=== PATIENT | male | born 1975 | race Hispanic/Latino ===

== ENCOUNTER 2021-08-07 17:17 | Inpatient (IN) | payer OTHER ==
[~2021-08-07] VITALS: Ht 175.3 cm; Wt 123.6 kg
[2021-08-07 17:40] LABS: BASOPHILS % (AUTO) 1.1 % (0.0-5.0); EOSINOPHILS % (AUTO) 1.5 % (0.0-8.0); LYMPHOCYTES % (AUTO) 23.4 % (21.0-51.0); MEAN CORPUSCULAR HEMOGLOBIN 29.1 pg (27.0-33.0); MEAN CORPUSCULAR VOLUME 80.9 fL (79-99); MONOCYTES % (AUTO) 7.7 % (3.0-13.0); NEUTROPHILS % (AUTO) 65.7 % (40.0-77.0); PLATELET COUNT (AUTO) 222 K/uL (130-400); RED BLOOD CELL COUNT(AUTO) 5.19 MIL/uL (4.50-6.20); RED CELL DISTRIBUTION WIDTH 12.6 % (11.0-15.5); WHITE BLOOD COUNT (AUTO) 9.3 K/uL (4.8-10.8)
[2021-08-07 17:52] LABS: INR 0.95 (0.85-1.15); PROTHROMBIN TIME 10.4 SEC (9.6-11.6)
[2021-08-07 17:53] LABS: PARTIAL THROMBOPLASTIN TIME 25.7 SEC (26.3-35.5)
[2021-08-07 18:02] LABS: ALBUMIN 2.8 g/dL (3.5-5.0); BILIRUBIN,TOTAL 0.3 mg/dL (0.2-1.0); POTASSIUM 4.2 mmol/L (3.5-5.1)
[2021-08-07 18:09] LABS: B-TYPE NATRIURETIC PEPTIDE 415 pg/mL (0-100)
[2021-08-07 18:32] LABS: APPEARANCE,URINE Clear (CLEAR); BILIRUBIN,URINE Negative (NEGATIVE); COLOR,URINE Yellow (YELLOW); GLUCOSE, URINE (UA) >=1000 mg/dL (NEGATIVE); KETONES,URINE Negative (NEGATIVE); LEUKOCYTE ESTERASE ,URINE Negative (NEGATIVE); NITRATE,URINE Negative (NEGATIVE); OCCULT BLOOD,URINE Small (NEGATIVE); PH,URINE 5.5 (5.0-8.0); PROTEIN,URINE >=1000 mg/dL (NEGATIVE); UROBILINOGEN,URINE 0.2 mg/dL (0.2-1.0)
[2021-08-07 18:40] LABS: AMPHET/METH SCREEN,URINE NEGATIVE (NEGATIVE); BARBITURATE SCREEN, URINE NEGATIVE (NEGATIVE); BENZODIAZEPINES SCREEN,URINE NEGATIVE (NEGATIVE); CANNABINOID SCREEN,URINE POSITIVE (NEGATIVE); COCAINE SCREEN,URINE NEGATIVE (NEGATIVE); OPIATE SCREEN,URINE NEGATIVE (NEGATIVE); PHENCYCLIDINE SCREEN,URINE NEGATIVE (NEGATIVE)
[2021-08-07 18:50] LABS: BACTERIA,URINE Few /HPF (None Seen)
[2021-08-07 18:51] LABS: SQUAMOUS EPITHELIAL CELL,UR Rare /HPF (0-2)
[2021-08-07] MEDS ORDERED: 0.9%NACL 1000ML 1,000 ML IV ONE (20:00)
[2021-08-07] MEDS ORDERED: ASPIRIN 325MG TAB PO ONE (20:00)
[2021-08-07] MEDS ORDERED: INSULIN HUMULIN R 100 UNIT/ML 3ML SQ ONE (20:00)
[2021-08-07] MEDS ORDERED: GLUCAGON 1MG KIT 1 MG ML IM PRN (20:30)
[2021-08-07] MEDS ORDERED: DEXTROSE 50%-WATER 50 ML DISP.SYRIN IV PRN (20:30)
[2021-08-07] MEDS: INSULIN R PO SS2 SQ SCH (21:00)
[2021-08-08 05:30] VITALS: BP 178/102
[2021-08-08] MEDS ORDERED: CLONIDINE HCL 0.1 MG TABLET PO PRN (06:30)
[2021-08-08] MEDS: ACETAMINOPHEN 325 MG TAB PO PRN ×2 (06:51→08:42)
[2021-08-08] MEDS: INSULIN R PO SS2 SQ SCH ×2 (07:00→12:20)
[2021-08-08 07:30] VITALS: BP 188/115
[2021-08-08] MEDS ORDERED: INSULIN GLARGINE 100 UNITS/ML 10 ML VIAL SQ SCH (09:00)
[2021-08-08] MEDS ORDERED: CLOPIDOGREL 75MG TAB PO SCH (09:00)
[2021-08-08] MEDS ORDERED: ATORVASTATIN 20 MG TABLET PO SCH (09:00)
[2021-08-08] MEDS ORDERED: LISINOPRIL 40 MG TABLET PO SCH (09:00)
[2021-08-08] MEDS ORDERED: ASPIRIN 81MG CHEW TAB PO SCH (09:00)
[2021-08-08 11:00] VITALS: BP 157/100
[2021-08-08] MEDS ORDERED: LISI40TA9 PO (13:06)
[2021-08-08] MEDS ORDERED: INSLAN SQ (13:07)
[2021-08-08] MEDS ORDERED: ROSU20TA31 PO (13:07)
== END 2021-08-08 13:28 | disposition home or self-care (01) | DRG 74 ==
LOC: EDH 17:17 → EDHIP 17:18 → 3DH 08-08 04:04
PROVIDERS: ADMIT Internal Medicine; ATTEND Internal Medicine
DX: G51.0 Bell's palsy (principal); G90.09 Other idiopathic peripheral autonomic neuropathy; I10 Essential (primary) hypertension; F12.90 Cannabis use, unspecified, uncomplicated; F17.200 Nicotine dependence, unspecified, uncomplicated; E78.5 Hyperlipidemia, unspecified; E11.65 Type 2 diabetes mellitus with hyperglycemia; E78.00 Pure hypercholesterolemia, unspecified; Z86.73 Personal history of transient ischemic attack (TIA), and cerebral infarction without residual deficits
CPT/HCPCS: 36415; 70450; 70551; 71045; 80053; 80305; 81001; 82550; 82948; 83721; 83880; 84484; 85025; 85610; 85730; 93005; 99291; G0378; J1815; J7030

== ENCOUNTER 2022-06-11 18:02 | Emergency (ER) | payer OTHER ==
[~2022-06-11] VITALS: Ht 401.3 cm; Wt 125.2 kg
[~2022-06-11 18:02] MED LIST: INSLAN SQ; LISI40TA9 PO; ROSU20TA31 PO
[2022-06-11 18:47] VITALS: BP 156/73
== END 2022-06-11 18:45 | disposition home or self-care (01) ==
LOC: EDH 18:02
DX: I10 Essential (primary) hypertension (principal); E11.9 Type 2 diabetes mellitus without complications; E78.00 Pure hypercholesterolemia, unspecified; F17.200 Nicotine dependence, unspecified, uncomplicated; Z79.4 Long term (current) use of insulin
CPT/HCPCS: 99281